=== PATIENT | female | born 2005 | race Caucasian/White ===

== ENCOUNTER 2024-07-07 07:59 | Outpatient (CLI) | payer OTHER ==
[~2024-07-07] VITALS: Ht 160 cm; Wt 110.9 kg
[2024-07-07 08:25] VITALS: BP 127/59
[2024-07-07] MEDS ORDERED: PRENTAB9 PO (08:26)
[2024-07-07] MEDS ORDERED: HOME MED LIST COMPLETE! XX SCH (08:30)
[2024-07-07 09:17] VITALS: BP 137/68
[2024-07-07 09:28] LABS: HEMATOCRIT 31.9 % (36.0-47.0); HEMOGLOBIN 11.1 g/dl (12.0-15.5); MEAN CORPUSCULAR HGB CONC 34.8 g/dl (32.0-36.5); MEAN CORPUSCULAR VOLUME 86.2 fl (80.0-96.0); PLATELET COUNT, AUTOMATED 199 10^3/uL (150-450); WHITE BLOOD COUNT 10.1 10^3/uL (4.0-10.0)
== END 2024-07-07 10:52 | disposition home or self-care (01) ==
LOC: M LDO 07:59
PROVIDERS: ATTEND Obstetrics & Gynecology
DX: Z04.1 Encounter for examination and observation following transport accident (principal); O34.219 Maternal care for unspecified type scar from previous cesarean delivery; O26.892 Other specified pregnancy related conditions, second trimester; Z3A.23 23 weeks gestation of pregnancy
CPT/HCPCS: 36415; 85027; 85460; G0463